=== PATIENT | male | born 1975 | race Two or more races ===

== ENCOUNTER 2019-05-30 12:42 | Inpatient (IN) | payer OTHER ==
[2019-05-30 13:07] VITALS: BMI 35.4
[2019-05-30] MEDS ORDERED: FAMOTIDINE 20 MG/50 ML IVPB 20 MG/50 ML MG IVPB ONE ×2 (13:34→13:56)
[2019-05-30] MEDS ORDERED: SODIUM CHLORIDE 1,000 ML IV STA (13:34)
[2019-05-30] MEDS ORDERED: ACETAMINOPHEN 1000 MG/100 ML VIAL (NON FORMULARY) IVPB ONE (13:34)
--- NOTE | 2019-05-30 13:41 | PDOC ---
History of Present Illness - General Chief Complaint: Blood Sugar Problem Stated Complaint: Blood Sugar Problem,Blood Pressure Problem Time Seen by Provider: 05/30/19 13:25 History Source: Patient Exam Limitations: No Limitations - History of Present Illness Initial Comments: 05/30/19 13:39 44y M with PMH of IDDM, HTN, HLD, Gastric Sleeve 2011, PNA c/b brain abscess s/ p drainage and L labial droop 2013, Alcohol abuse, Pancreatitis presenting to ED for hypertension and hyperglycemia. Pt went to [facility] for detox but was sent to ER for elevated bp and blood glucose. Pt states that for the past week he has been drinking 1L of rum daily and last drink was 5d ago. He denies history of withdrawal seizures or admission to the hospital for withdrawal. Pt also endorses pain in the epigastrum radiating to the back which has been present for the past few days and loose non bloody stools. He has not been compliant with his medications; he does not take his bp or statins when he binge drinks and only uses Lantus because he ran out of Novolog. Denies vomiting, fever, chills, headache, bloating, chest pain, sob, rash. PMD: none PMH: see hpi PSH: see hpi Meds: amlodipine 10mg? Crestor 10mg, Lantus, Novolog Social: binge drinking, marijuana use Allergies: nkda Past History - Past Medical History Allergies/Adverse Reactions: Allergies Allergy/AdvReac Type Severity Reaction Status Date / Time No Known Allergies Allergy Verified 05/30/19 10:52 Home Medications: Ambulatory Orders Albuterol Sulfate Inhaler - [Ventolin Hfa Inhaler -] 2 inh PO Q4H PRN 05/30/19 Amlodipine Besylate [Norvasc -] 5 mg PO DAILY 05/30/19 Famotidine 20 mg PO DAILY 05/30/19 Rosuvastatin Calcium [Crestor] 20 mg PO HS 05/30/19 Asthma: Yes CVA: Yes (2013) COPD: No Diabetes: Yes (IDDM) HTN: Yes Liver Disease: Yes (cirossis, hep c) Psychiatric Problems: Yes (alcoholism, drug addiction) - Surgical History Gastric Stapling: Yes (gastric sleeve 2012) GI Surgery: Yes (liver bx) Neurologic Surgery: Yes (crainotomy) - Psycho Social/Smoking Cessation Hx Smoking History: Former smoker Have you smoked in the past 12 months: No Information on smoking cessation initiated: Yes Hx Alcohol Use: Yes Drug/Substance Use Hx: Yes (Kiersten) Review of Systems - Review of Systems Constitutional: No: Chills, Fever, Weakness HEENTM: No: Symptoms Reported Respiratory: No: Symptoms reported Cardiac (ROS): No: Symptoms Reported ABD/GI: Yes: Diarrhea, Abdominal cramping. No: Blood Streaked Bowels, Nausea, Rectal Bleeding, Vomiting, Tarry Stools : No: Symptoms Reported Musculoskeletal: No: Symptoms Reported Integumentary: No: Symptoms Reported Neurological: No: Symptoms reported *Physical Exam - Vital Signs Last Vital Signs Temp Pulse Resp BP Pulse Ox 98 F 109 H 15 185/115 H 98 05/30/19 12:57 05/30/19 12:57 05/30/19 12:57 05/30/19 12:57 05/30/19 12:57 - Physical Exam General Appearance: Yes: Appropriately Dressed, Obese. No: Apparent Distress HEENT: positive: EOMI, KARI. negative: Scleral Icterus (R), Scleral Icterus (L) Neck: positive: Trachea midline, Supple. negative: Lymphadenopathy (R), Lymphadenopathy (L) Respiratory/Chest: positive: Lungs Clear, Normal Breath Sounds. negative: Crackles, Rales, Rhonchi, Stridor, Wheezing Cardiovascular: positive: Regular Rhythm, Regular Rate, S1, S2. negative: Edema , JVD, Murmur Vascular Pulses: Dorsalis-Pedis (R): 2+, Doralis-Pedis (L): 2+ Gastrointestinal/Abdominal: positive: Normal Bowel Sounds, Soft. negative: Tender, Distended, Guarding, Rebound, Hernia, Mass Musculoskeletal: negative: CVA Tenderness Extremity: positive: Normal Capillary Refill. negative: Pedal Edema, Swelling, Calf Tenderness Integumentary: positive: Normal Color, Dry, Warm. 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 Endorsing epigastric pain radiating to back and 5 day sobriety from binge drinking 1L rum. initial vitals: tachycardic, hypertensive, afebrile, saturating well on RA. meds and belongings at [facility] comfortable appearing. no focal exam findings. no astrexis or fasiculations low suspicion for stroke at this time, low suspicion for PRES. htn likely 2/2 noncompliance v. withdrawal ddx includes pancreatitis, DKA, gerd, gastritits, PUD will obtain labs, trop, lipase, bhb, vbg ekg, cxr -ivf, pepcid, ofirmev nontender on exam; does not require imaging lipase elevated, normal lfts. given pain and elevated lipase, pt has pancreatitis. will give amlodipine and librium and maintenence fluids admitted to hospitalist Discharge - Discharge Information Problems reviewed: Yes Clinical Impression/Diagnosis: Pancreatitis Qualifiers: Chronicity: acute Pancreatitis type: alcohol induced Acute pancreatitis complication: unspecified Qualified Code(s): K85.20 - Alcohol induced acute pancreatitis without necrosis or infection Hypertension Qualifiers: Hypertension type: unspecified Qualified Code(s): I10 - Essential (primary) hypertension Condition: Stable - Admission Yes - Follow up/Referral - Patient Discharge Instructions - Post Discharge Activity
[2019-05-30 13:53] LABS: BASO % 0.7 % (0-2.0); EOS % 1.3 % (0-4.5); HEMATOCRIT 43.4 % (35.4-49); HEMOGLOBIN 14.3 GM/dL (11.7-16.9); MCH 27.1 pg (25.7-33.7); MCHC 32.9 g/dl (32.0-35.9); MEAN CELL VOLUME 82.5 fl (80-96); MEAN PLT VOLUME 7.4 fl (7.5-11.1); MONO % 8.7 % (3.8-10.2); NEUT % 67.3 % (42.8-82.8); PLATELET COUNT 225 K/MM3 (134-434); RBC 5.26 M/mm3 (4.00-5.60); RDW 14.1 % (11.9-15.9)
[2019-05-30] MEDS ORDERED: ACETAMINOPHEN INJECTION 100 ML IVPB ONE (13:55)
[2019-05-30 14:29] LABS: ALBUMIN 3.4 g/dl (3.4-5.0); ALK PHOS 117 U/L (45-117); ANION GAP 14 MMOL/L (8-16); BILIRUBIN,TOTAL 0.6 mg/dL (0.2-1); BLOOD UREA NITROGEN 8.9 mg/dL (7-18); CHLORIDE 103 mmol/L (98-107); CO2 20 mmol/L (21-32); CREATININE 0.7 mg/dL (0.55-1.3); GLUCOSE,RANDOM 296 mg/dL (74-106); LIPASE 1091 U/L (73-393); POTASSIUM 3.6 mmol/L (3.5-5.1); SGOT/AST 9 U/L (15-37); SGPT/ALT 24 U/L (13-61); SODIUM 137 mmol/L (136-145); TOT PROT 7.2 g/dl (6.4-8.2)
[2019-05-30 14:41] LABS: VENOUS PC02 35.3 mmHg (38-52); VENOUS PH 7.35 (7.31-7.41)
[2019-05-30 14:43] LABS: VENOUS PO2 < 49 mmHg (28-48)
[2019-05-30] MEDS ORDERED: LACTATED RINGERS SOLUTION 1,000 ML/1,000 ML INFUS.BAG IV SCH (14:45)
[2019-05-30] MEDS ORDERED: amLODIPine BESYLATE 5 MG TABLET (FP) PO ONE ×2 (15:01→16:30)
[2019-05-30] MEDS ORDERED: diazePAM CARPU-JECT 10 MG/2 ML DISP.SYRIN IVPUSH ONE (15:02)
[2019-05-30] MEDS ORDERED: chlordiazePOXIDE HCL 25 MG CAPSULE PO ONE (15:02)
[2019-05-30] MEDS ORDERED: chlordiazePOXIDE HCL 25 MG CAPSULE ONE (15:12)
[2019-05-30] MEDS ORDERED: amLODIPine BESYLATE 5 MG TABLET (FP) ONE ×2 (15:12→16:37)
[2019-05-30] MEDS ORDERED: diazePAM CARPU-JECT 10 MG/2 ML DISP.SYRIN ONE (15:12)
--- NOTE | 2019-05-30 15:15 | PDOC ---
Attending Attestation - Resident Resident Name: Leslie Rudd - ED Attending Attestation I have performed the following: I have examined & evaluated the patient, The case was reviewed & discussed with the resident, I agree w/resident's findings & plan - HPI HPI: 05/30/19 15:10 44-year-old male with history of hypertension, insulin-dependent diabetes, alcohol abuse complicated by pancreatitis in the past presents from [facility] for evaluation of elevated blood pressure. Patient had last binge EtOH from Wednesday through of last week, about 1 week ago started developing epigastric pain with loose nonbloody diarrhea, stopped binge on and self detoxed over the weekend, presented to [facility] now for evaluation complaining only of mild persistent epigastric pain. Was noted to have elevated blood pressure and heart rate, sent to ED. No headache/vision change/speech change/focal deficit, no chest pain or palpitations or shortness of breath. Patient's withdrawal symptoms have essentially resolved, slightly jittery but no tremors. - Physicial Exam PE: 05/30/19 15:14 Hypertensive, heart rate improved since triage, now 80 on my examination. O2 sat within normal limits. Seated comfortably in stretcher speaking full sentences No tongue fasciculations or tremors Heart is regular, lungs are clear Epigastric discomfort to palpation without guarding or rebound No edema Neurologically intact - Medical Decision Making 05/30/19 15:15 44-year-old male with history of hypertension and known medication noncompliance for 1 week, insulin-dependent diabetes with medication noncompliance after running out of insulin, alcohol abuse with recent binge presents with hypertension and tachycardia from [facility], where he presented for rehab. Patient is not in acute withdrawal, epigastric pain could be consistent with pancreatitis, no signs or symptoms of endorgan injury from elevated blood pressure. Labs are within normal limits except for lipase, which is slightly over 1000 EKG is nonischemic Librium for withdrawal precautions, IV fluids for pancreatitis, amlodipine for hypertension Admission Heart Score/ECG Review #1 ECG reviewed & interpreted by me at: 13:40 General ECG Interpretation: Sinus Rhythm, Normal Rate (99), Normal Intervals ( qtc 469), No acute ischemic changes (VA depression V1-V3 without EULALIA) Compared to previous ECG there are: Previous ECG unavail
[2019-05-30] MEDS: LACTATED RINGERS SOLUTION 1,000 ML/1,000 ML INFUS.BAG IV SCH (15:23)
[2019-05-30] MEDS: INSULIN SLIDING SCALE (NOVOLOG) 1 VIAL SQ SCH ×2 (16:31→22:40)
[2019-05-30] MEDS ORDERED: INSULIN (NOVOLOG) ASPART 100 UNITS/ML 10ML VIAL ONE (16:38)
--- NOTE | 2019-05-30 16:49 | HP ---
CHIEF COMPLAINT: abdominal pain PCP: denies HISTORY OF PRESENT ILLNESS: This is a 44 y/o gentleman with a PMHx of HTN, IDDM , polysubstance abuse, HCV (treated succesfully with Jaelyn), alcoholic pancreatitis, DKA, ischemic stroke (2013) with minimal residual left sided aphasia, craniotomies for bacterial cranial abscess, cirrhosis, who presents from [facility] c/o epigastric pain X 1 week. Associated with 3 bouts of loose stool today, but denies any vomiting, fevers, chills, cp, sob, numbness, bladder complaints. Pt states he was at [facility] and was told he would have to come to the hospital to be evaluated for elevated BP, hyperglycemia. Pt recently been laid off due to being caught drinking on the job and that has caused increased stress and worsening of his symptoms. He admits to recent alcohol binge drinking of 1L of rum this past and enrolled himself into [facility] detox. Pt states it is his first time in detox. He has a fam hx of alcohol abuse. Pt admits to running out of his novolog prescription, as it was last refilled for only 30 days. 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 Allergies No Known Allergies Allergy (Verified 05/30/19 10:52) Allergy to shellfish, peanuts (anaphylaxis) HOME MEDICATIONS: Home Medications Medication Instructions Recorded Albuterol Sulfate Inhaler - 2 inh PO Q4H PRN 05/30/19 [Ventolin Hfa Inhaler -] Amlodipine Besylate [Norvasc -] 5 mg PO DAILY 05/30/19 Famotidine 20 mg PO DAILY 05/30/19 Rosuvastatin Calcium [Crestor] 20 mg PO HS 05/30/19 REVIEW OF SYSTEMS negative except above PHYSICAL EXAMINATION Vital Signs - 24 hr 05/30/19 05/30/19 12:57 14:01 Temperature 98 F Pulse Rate 109 H Pulse Rate [ 99 H Apical] Respiratory 15 16 Rate Blood Pressure 185/115 H Blood Pressure 195/111 H [Left Arm] O2 Sat by Pulse 98 98 Oximetry (%) GENERAL: Awake, alert, and fully oriented, in no acute distress. Tattoes throughout his body and extremities. Face minimal left side aphasia on lip mostly, sensation and motor ftn intact b/l. LUNGS: Breath sounds reduced, clear to auscultation bilaterally. No wheezes, and no crackles. No accessory muscle use. HEART: Regular rate and rhythm, normal S1 and S2 without murmur, rub or gallop. ABDOMEN: Soft, nontender to palpation, no castillo sign, negative mcburneys, negative cullens, angel turners sign on exam. LOWER EXTREMITIES: 2+ pulses, warm, well-perfused. No calf tenderness. No peripheral edema. NEUROLOGICAL: Cranial nerves II-XII intact. Normal speech. Normal gait. Laboratory Results - last 24 hr 05/30/19 05/30/19 05/30/19 12:53 13:37 13:37 WBC 7.0 RBC 5.26 Hgb 14.3 Hct 43.4 MCV 82.5 MCH 27.1 MCHC 32.9 RDW 14.1 Plt Count 225 MPV 7.4 L Absolute Neuts (auto) 4.7 Neutrophils % 67.3 Lymphocytes % 22.0 Monocytes % 8.7 Eosinophils % 1.3 Basophils % 0.7 Nucleated RBC % 0 VBG pH POC VBG pCO2 POC VBG pO2 VBG HCO3 VBG O2 Sat (Shawn) VBG Base Excess Sodium 137 Potassium 3.6 Chloride 103 Carbon Dioxide 20 L Anion Gap 14 BUN 8.9 Creatinine 0.7 Est GFR (CKD-EPI)AfAm 134.91 Est GFR (CKD-EPI)NonAf 116.40 POC Glucometer 331 Random Glucose 296 H Calcium 9.0 Total Bilirubin 0.6 AST 9 L ALT 24 Alkaline Phosphatase 117 Troponin I < 0.02 Total Protein 7.2 Albumin 3.4 Lipase 1091 H Beta-Hydroxybutyrate 38.7 H 05/30/19 05/30/19 13:44 16:29 WBC RBC Hgb Hct MCV MCH MCHC RDW Plt Count MPV Absolute Neuts (auto) Neutrophils % Lymphocytes % Monocytes % Eosinophils % Basophils % Nucleated RBC % VBG pH 7.35 POC VBG pCO2 35.3 L POC VBG pO2 < 49 H VBG HCO3 18.8 L VBG O2 Sat (Shawn) 79.5 VBG Base Excess -5.7 L Sodium Potassium Chloride Carbon Dioxide Anion Gap BUN Creatinine Est GFR (CKD-EPI)AfAm Est GFR (CKD-EPI)NonAf POC Glucometer 214 Random Glucose Calcium Total Bilirubin AST ALT Alkaline Phosphatase Troponin I Total Protein Albumin Lipase Beta-Hydroxybutyrate ASSESSMENT/PLAN: This is a 44 y/o gentleman with a PMHx of HTN, IDDM, polysubstance abuse, HCV ( treated succesfully with Jaelyn), alcoholic pancreatitis, DKA, ischemic stroke (2013) with minimal residual left sided aphasia, craniotomies for bacterial cranial abscess, cirrhosis, who presents from [facility] c/o epigastric pain X 1 week. #Acute pancreatitis - likely 2/2 alcohol abuse - Lipase elevated, epigastric pain (2/3 criteria not requiring imaging at this time or abx). - lipid panel pending - no medications associated with this per pts med list - lipid panel, A1C ordered, tsh, mg, po4 ordered - can feed pt now as pt not having much abd pain and not nauseous - LR 150cc/hr for now - lipase ordered for am to make sure its downtrending - pt not in withdrawal at this time, will f/u at [facility] once clinically stable - librium and diazepam given in ED no need to continue - 2mg morphine q6 prn for pain #Hypertensive urgency - 2/2 not taking oral meds - pt restarted on amlodipine 10mg and pt continued to have elevated BP and tachycardia per nurse not in pain at moment so started pt on losartan 25 daily - likely will start another medication if pt BP does not resolve #IDDM - ISS - BGM ACHS - Levemir 25 HS Elevated BOHbutyrate 2/2 starvation ketosis - not in DKA - no AG, HCO3 not less than 18, we dont have an abg but the Beta hydroxybutyrate is likely due to starvation ketosis from poor po intake and DM - clear liquids as tolerated Asthma - controlled - c/w home meds - ventolin and flonase DVT ppx: Hep 5K TID Visit type - Emergency Visit Emergency Visit: Yes ED Registration Date: 05/30/19 Care time: The patient presented to the Emergency Department on the above date and was hospitalized for further evaluation of their emergent condition. - New Patient This patient is new to me today: Yes Date on this admission: 05/30/19 - Critical Care Critical Care patient: No ATTENDING PHYSICIAN STATEMENT I saw and evaluated the patient. I reviewed the resident's note and discussed the case with the resident. I agree with the resident's findings and plan as documented. SUBJECTIVE: OBJECTIVE: ASSESSMENT AND PLAN:
[2019-05-30] MEDS ORDERED: ALBUTEROL SO4 HFA INHALER IH PRN (17:11)
[2019-05-30 17:19] LABS: EPI CELLS 4.2 /HPF (0-5/HPF); HYALINE CASTS 3 /lpf (0-8); URINE APPEARANCE CLEAR; URINE BACTERIA 76.4 /hpf (NEGATIVE); URINE BILIRUBIN NEGATIVE (NEGATIVE); URINE COLOR YELLOW; URINE GLUCOSE (UA) 3+ (NEGATIVE); URINE KETONE 3+ (NEGATIVE); URINE LEUK ESTERASE NEGATIVE (NEGATIVE); URINE NITRITE NEGATIVE (NEGATIVE); URINE PROTEIN 2+ (NEGATIVE); URINE RBC 2 /hpf (0-4); URINE UROBILINOGEN 0.2 mg/dL (0.2-1.0); URINE WBC 2 /hpf (0-5)
[2019-05-30] MEDS: ACETAMINOPHEN 325 MG TABLET (FP) PO PRN (18:15)
[2019-05-30] MEDS ORDERED: ACETAMINOPHEN 325 MG TABLET (FP) ONE (18:18)
[2019-05-30] MEDS ORDERED: morphine CARPU-JECT 4 MG/1 ML DISP.SYRIN IVPUSH ONE (18:20)
[2019-05-30] MEDS ORDERED: HYDROmorphone HCL CARPU-JECT 2 MG/1 ML DISP.SYRIN IVPUSH STA (18:34)
[2019-05-30] MEDS ORDERED: MORPHINE SULFATE 2 MG/ML VIAL ONE (18:34)
[2019-05-30] MEDS ORDERED: MORPHINE SULFATE 2 MG/ML VIAL IVPUSH PRN ×2 (18:51→18:52)
[2019-05-30] MEDS ORDERED: LOSARTAN POTASSIUM 50 MG TABLET (FP) ONE (21:02)
[2019-05-30] MEDS: LOSARTAN POTASSIUM 25 MG TABLET PO SCH (21:09)
[2019-05-30] MEDS ORDERED: ALBUTEROL SO4 HFA INHALER IH SCH (22:00)
[2019-05-30] MEDS: ROSUVASTATIN CA 10 MG TABLET (FP) PO SCH (22:38)
[2019-05-30] MEDS: INSULIN (LEVEMIR) 100 UNITS/ML UNITS SQ SCH (22:39)
[2019-05-30] MEDS: HEPARIN NA (PORCINE) 5,000 UNITS/ML 1ML VIAL SQ SCH (22:42)
[2019-05-30] MEDS: FLUTICASONE PROP 0.05% 16 GM NASAL SPRAY NS SCH ×2 (22:43→23:08)
--- NOTE | 2019-05-30 22:44 | PN ---
Teaching Attending Note Name of Resident: Gordo Berger ATTENDING PHYSICIAN STATEMENT I saw and evaluated the patient. I reviewed the resident's note and discussed the case with the resident. I agree with the resident's findings and plan as documented. 44 M HTN, IDDM, PSA, HCV (treated succesfully with Jaelyn), Etoh induced pancreatitis, DKA, ischemic stroke (2013) with minimal residual left sided aphasia, craniotomies for bacterial cranial abscess, cirrhosis, who presents from [facility] presenting with epigastric pain x1 week. Patient endorses chronic abdominal pain especially when he binges on alcohol, last drink he endorses was 6 days ago, endorses abdominal pain feels similar from prior. Denies fever/chills/CP/LOC/bleeding from any source. PE GA comfortable, AAox3, speaking in full sentences HEENT NC/AT, EOMI, no JVD, dry MM Chest CTAB, no crackles or wheezing CVS S1, S2+, RRR Abd obese, soft, NT, BS+, no guarding Ext No LE edema, no calf tenderness, ambulating around ED Vital Signs - 24 hr 05/30/19 05/30/19 05/30/19 12:57 14:01 16:30 Temperature 98 F Pulse Rate 109 H Pulse Rate [ 99 H 112 H Apical] Respiratory 15 16 20 Rate Blood Pressure 185/115 H Blood Pressure 195/111 H 179/114 H [Left Arm] O2 Sat by Pulse 98 98 99 Oximetry (%) 05/30/19 21:10 Temperature 98.7 F Pulse Rate Pulse Rate [ 105 H Apical] Respiratory 20 Rate Blood Pressure Blood Pressure 190/117 H [Left Arm] O2 Sat by Pulse 100 Oximetry (%) Laboratory Results - last 24 hr 05/30/19 05/30/19 05/30/19 12:53 13:37 13:37 WBC 7.0 RBC 5.26 Hgb 14.3 Hct 43.4 MCV 82.5 MCH 27.1 MCHC 32.9 RDW 14.1 Plt Count 225 MPV 7.4 L Absolute Neuts (auto) 4.7 Neutrophils % 67.3 Lymphocytes % 22.0 Monocytes % 8.7 Eosinophils % 1.3 Basophils % 0.7 Nucleated RBC % 0 VBG pH POC VBG pCO2 POC VBG pO2 VBG HCO3 VBG O2 Sat (Shawn) VBG Base Excess Sodium 137 Potassium 3.6 Chloride 103 Carbon Dioxide 20 L Anion Gap 14 BUN 8.9 Creatinine 0.7 Est GFR (CKD-EPI)AfAm 134.91 Est GFR (CKD-EPI)NonAf 116.40 POC Glucometer 331 Random Glucose 296 H Calcium 9.0 Total Bilirubin 0.6 AST 9 L ALT 24 Alkaline Phosphatase 117 Troponin I < 0.02 Total Protein 7.2 Albumin 3.4 Lipase 1091 H Beta-Hydroxybutyrate 38.7 H Urine Color Urine Appearance Urine pH Ur Specific [place] Urine Protein Urine Glucose (UA) Urine Ketones Urine Blood Urine Nitrite Urine Bilirubin Urine Urobilinogen Ur Leukocyte Esterase Urine WBC (Auto) Urine RBC (Auto) Urine Casts (Auto) U Epithel Cells (Auto) Urine Bacteria (Auto) 05/30/19 05/30/19 05/30/19 13:44 16:29 16:55 WBC RBC Hgb Hct MCV MCH MCHC RDW Plt Count MPV Absolute Neuts (auto) Neutrophils % Lymphocytes % Monocytes % Eosinophils % Basophils % Nucleated RBC % VBG pH 7.35 POC VBG pCO2 35.3 L POC VBG pO2 < 49 H VBG HCO3 18.8 L VBG O2 Sat (Shawn) 79.5 VBG Base Excess -5.7 L Sodium Potassium Chloride Carbon Dioxide Anion Gap BUN Creatinine Est GFR (CKD-EPI)AfAm Est GFR (CKD-EPI)NonAf POC Glucometer 214 Random Glucose Calcium Total Bilirubin AST ALT Alkaline Phosphatase Troponin I Total Protein Albumin Lipase Beta-Hydroxybutyrate Urine Color Yellow Urine Appearance Clear Urine pH 5.0 Ur Specific [place] 1.032 Urine Protein 2+ H Urine Glucose (UA) 3+ H Urine Ketones 3+ H Urine Blood 1+ H Urine Nitrite Negative Urine Bilirubin Negative Urine Urobilinogen 0.2 Ur Leukocyte Esterase Negative Urine WBC (Auto) 2 Urine RBC (Auto) 2 Urine Casts (Auto) 3 U Epithel Cells (Auto) 4.2 Urine Bacteria (Auto) 76.4 05/30/19 22:28 WBC RBC Hgb Hct MCV MCH MCHC RDW Plt Count MPV Absolute Neuts (auto) Neutrophils % Lymphocytes % Monocytes % Eosinophils % Basophils % Nucleated RBC % VBG pH POC VBG pCO2 POC VBG pO2 VBG HCO3 VBG O2 Sat (Shawn) VBG Base Excess Sodium Potassium Chloride Carbon Dioxide Anion Gap BUN Creatinine Est GFR (CKD-EPI)AfAm Est GFR (CKD-EPI)NonAf POC Glucometer 272 Random Glucose Calcium Total Bilirubin AST ALT Alkaline Phosphatase Troponin I Total Protein Albumin Lipase Beta-Hydroxybutyrate Urine Color Urine Appearance Urine pH Ur Specific [place] Urine Protein Urine Glucose (UA) Urine Ketones Urine Blood Urine Nitrite Urine Bilirubin Urine Urobilinogen Ur Leukocyte Esterase Urine WBC (Auto) Urine RBC (Auto) Urine Casts (Auto) U Epithel Cells (Auto) Urine Bacteria (Auto) Home Medications Medication Instructions Recorded Amlodipine Besylate [Norvasc -] 10 mg PO DAILY 05/30/19 Famotidine 20 mg PO BID 05/30/19 Insulin Aspart [Novolog] 10 unit SQ AC 05/30/19 Insulin Glargine,Hum.rec.anlog 25 unit SQ HS 05/30/19 [Lantus] Rosuvastatin Calcium [Crestor] 10 mg PO HS 05/30/19 Current Medications Generic Name Dose Route Start Last Admin Trade Name Freq PRN Reason Stop Dose Admin Acetaminophen 650 mg 05/30/19 16:33 05/30/19 18:15 Tylenol - PO 650 mg Q6H PRN Administration PAIN LEVEL 1 - 3 Albuterol Sulfate 2 puff 05/30/19 17:11 Ventolin Hfa Inhaler - IH Q12H PRN WHEEZING Amlodipine Besylate 10 mg 05/31/19 10:00 Norvasc - PO DAILY YADY Famotidine 20 mg 05/31/19 10:00 Pepcid - PO DAILY YADY Fluticasone Propionate 1 spray 05/30/19 22:00 Flonase - NS BID YADY Heparin Sodium (Porcine) 5,000 unit 05/30/19 22:00 Heparin - SQ TID YADY Lactated Ringer's 1,000 ml in 1,000 mls @ 150 mls/hr 05/30/19 15:11 05/30/19 15:23 Lactated Ringers Solution IV 150 mls/hr ASDIR YADY Administration Insulin Aspart 1 vial 05/30/19 16:30 05/30/19 16:31 Novolog Vial Sliding Scale - SQ 4 units ACHS YADY Administration Protocol Insulin Detemir 25 units 05/30/19 22:00 Levemir Vial SQ HS YADY Losartan Potassium 25 mg 05/30/19 19:00 05/30/19 21:09 Cozaar - PO 25 mg DAILY YADY Administration Morphine Sulfate 2 mg 05/30/19 18:52 Morphine Sulfate IVPUSH Q6H PRN PAIN LEVEL 6-10 Rosuvastatin Calcium 10 mg 05/30/19 22:00 Crestor - PO HS YADY A/P: 44 M chronic pancreatitis 2/2 Etoh use, HTN, HLD, IDDM, asthma presents with acute on chronic pancreatitis and HTN urgency. Acute on chronic pancreatitis IVF, morphine for pain control, clear diet as tolerated Reinforce Etoh cessation, repeat lipase, on exam abdominal pain is minimal, tolerating PO HTN urgency Non-compliant w/ BP meds Restart Norvasc, add Losartan at increment doses Obtain UA (check for proteinuria d/t DM) IDDM Basal insulin, ISS, and premeal insulin as needed Send A1c/lipids/TSH Etoh induced ketosis Elevated BHB, likely 2/2 poor intake and etoh use Trend chem Asthma Controlled Restart home asthma meds, Albuterol PRN for SOB DVT ppx: Hep 5K TID Med Surg
[2019-05-30] MEDS ORDERED: LOSARTAN POTASSIUM 25 MG TABLET PO ONE (23:18)
[2019-05-31] MEDS ORDERED: MAG HYDROX/AL HYDROX/SIMETH 30 ML UNIT-DOSE CUP PO ONE (01:28)
[2019-05-31] MEDS: HEPARIN NA (PORCINE) 5,000 UNITS/ML 1ML VIAL SQ SCH ×3 (07:01→21:23)
[2019-05-31] MEDS: INSULIN SLIDING SCALE (NOVOLOG) 1 VIAL SQ SCH ×4 (07:03→21:17)
[2019-05-31] MEDS: LACTATED RINGERS SOLUTION 1,000 ML/1,000 ML INFUS.BAG IV SCH (08:32)
[2019-05-31 09:13] LABS: BASO % 0.6 % (0-2.0); EOS % 1.5 % (0-4.5); HEMATOCRIT 42.6 % (35.4-49); HEMOGLOBIN 14.3 GM/dL (11.7-16.9); LYMPH % 27.1 % (8-40); MCH 27.2 pg (25.7-33.7); MCHC 33.6 g/dl (32.0-35.9); MEAN PLT VOLUME 7.3 fl (7.5-11.1); MONO % 7.8 % (3.8-10.2); PLATELET COUNT 235 K/MM3 (134-434); RBC 5.26 M/mm3 (4.00-5.60); RDW 13.8 % (11.9-15.9); WHITE BLOOD COUNT 5.8 K/mm3 (4.0-10.0)
[2019-05-31 09:35] LABS: CHOLESTEROL 342 mg/dL (50-200); HDL CHOLESTEROL 82 mg/dL (40-60); LDL CHOLESTEROL (ONLY SJRH) 210 mg/dL (5-100); TRIGLYCERIDES 254 mg/dL (0-150)
[2019-05-31] MEDS: ACETAMINOPHEN 325 MG TABLET (FP) PO PRN ×2 (09:50→21:25)
[2019-05-31] MEDS: FOLIC ACID 1 MG TABLET (FP) PO SCH (09:52)
[2019-05-31] MEDS: THIAMINE HCL 100 MG TABLET (FP) PO SCH (09:52)
[2019-05-31] MEDS: amLODIPine BESYLATE 10 MG TABLET (FP) PO SCH (09:52)
[2019-05-31] MEDS: FLUTICASONE PROP 0.05% 16 GM NASAL SPRAY NS SCH ×2 (09:53→21:24)
[2019-05-31] MEDS: LOSARTAN POTASSIUM 25 MG TABLET PO SCH (09:53)
[2019-05-31] MEDS ORDERED: FAMOTIDINE 20 MG TABLET PO SCH (10:00)
[2019-05-31 10:13] LABS: ALBUMIN 3.3 g/dl (3.4-5.0); BILIRUBIN,TOTAL 0.6 mg/dL (0.2-1); BLOOD UREA NITROGEN 9.6 mg/dL (7-18); CALCIUM 8.9 mg/dL (8.5-10.1); CREATININE 0.7 mg/dL (0.55-1.3); MAGNESIUM 1.9 mg/dL (1.8-2.4); PHOSPHOROUS 2.6 mg/dL (2.5-4.9); TOT PROT 7.2 g/dl (6.4-8.2)
[2019-05-31 10:17] LABS: POTASSIUM 2.8 mmol/L (3.5-5.1)
[2019-05-31] MEDS ORDERED: POTASSIUM CHLORIDE TABS 20 MEQ TABLET.ER (FP) PO ONE (10:31)
[2019-05-31] MEDS ORDERED: LACTATED RINGERS SOLUTION 1,000 ML/1,000 ML INFUS.BAG IV SCH (10:31)
--- NOTE | 2019-05-31 10:43 | EKG ---
Test Reason : Blood Pressure : / mmHG Vent. Rate : 099 BPM Atrial Rate : 099 BPM P-R Int : 154 ms QRS Dur : 084 ms QT Int : 366 ms P-R-T Axes : 047 010 052 degrees QTc Int : 469 ms NORMAL SINUS RHYTHM POSSIBLE LEFT ATRIAL ENLARGEMENT ANTERIOR INFARCT , AGE UNDETERMINED ABNORMAL ECG NO PREVIOUS ECGS AVAILABLE Confirmed by Stepan Navarro MD ([id number]) on 05/31/2019 10:43:38 AM Referred By: Confirmed By:Stepan Navarro MD
[2019-05-31] MEDS: PANTOPRAZOLE SODIUM 40 MG VIAL IVPUSH SCH (11:16)
[2019-05-31] MEDS: KCL 10 MEQ IVPB 10 MEQ/100 ML INFUS.BAG IVPB SCH ×3 (11:16→14:32)
[2019-05-31] MEDS ORDERED: INSULIN (NOVOLOG) ASPART 100 UNITS/ML 10ML VIAL ONE ×2 (11:27→16:29)
--- NOTE | 2019-05-31 16:59 | PN ---
Teaching Attending Note Name of Resident: Gordo Berger ATTENDING PHYSICIAN STATEMENT I saw and evaluated the patient. I reviewed the resident's note and discussed the case with the resident. I agree with the resident's findings and plan as documented. SUBJECTIVE: Feeling much better. Abdominal pain resolving. No nausea/vomiting. No fever/chills. OBJECTIVE: Afebrile, hemodynamically Stable. Last Vital Signs Temp Pulse Resp BP Pulse Ox 98.8 F 104 H 18 159/102 H 98 05/31/19 15:01 05/31/19 15:01 05/31/19 15:01 05/31/19 15:01 05/31/19 10:00 HEENT - Atraumatic, Normocephalic. Heart - S1, S2, RRR Lungs - clear to auscultation Abdomen -Soft, non-tender. Bowel Sounds normal. Extremities - no edema, no calf tenderness. Skin - extensive tattoes. Laboratory Results - last 24 hr 05/30/19 05/30/19 05/31/19 16:55 22:28 05:23 WBC RBC Hgb Hct MCV MCH MCHC RDW Plt Count MPV Absolute Neuts (auto) Neutrophils % Lymphocytes % Monocytes % Eosinophils % Basophils % Nucleated RBC % Sodium Potassium Chloride Carbon Dioxide Anion Gap BUN Creatinine Est GFR (CKD-EPI)AfAm Est GFR (CKD-EPI)NonAf POC Glucometer 272 205 Random Glucose Hemoglobin A1c % Calcium Phosphorus Magnesium Total Bilirubin AST ALT Alkaline Phosphatase Total Protein Albumin Triglycerides Cholesterol Total LDL Cholesterol HDL Cholesterol Lipase TSH Urine Color Yellow Urine Appearance Clear Urine pH 5.0 Ur Specific [place] 1.032 Urine Protein 2+ H Urine Glucose (UA) 3+ H Urine Ketones 3+ H Urine Blood 1+ H Urine Nitrite Negative Urine Bilirubin Negative Urine Urobilinogen 0.2 Ur Leukocyte Esterase Negative Urine WBC (Auto) 2 Urine RBC (Auto) 2 Urine Casts (Auto) 3 U Epithel Cells (Auto) 4.2 Urine Bacteria (Auto) 76.4 05/31/19 05/31/19 05/31/19 08:30 08:30 08:30 WBC 5.8 RBC 5.26 Hgb 14.3 Hct 42.6 MCV 81.0 MCH 27.2 MCHC 33.6 RDW 13.8 Plt Count 235 MPV 7.3 L Absolute Neuts (auto) 3.6 Neutrophils % 63.0 Lymphocytes % 27.1 D Monocytes % 7.8 Eosinophils % 1.5 Basophils % 0.6 Nucleated RBC % 0 Sodium 134 L Potassium 2.8 L* Chloride 97 L Carbon Dioxide 24 Anion Gap 13 BUN 9.6 Creatinine 0.7 Est GFR (CKD-EPI)AfAm 134.91 Est GFR (CKD-EPI)NonAf 116.40 POC Glucometer Random Glucose 256 H Hemoglobin A1c % Calcium 8.9 Phosphorus 2.6 Magnesium 1.9 Total Bilirubin 0.6 AST 8 L ALT 25 Alkaline Phosphatase 113 Total Protein 7.2 Albumin 3.3 L Triglycerides 254 H Cholesterol 342 H Total LDL Cholesterol 210 H HDL Cholesterol 82 H Lipase 443 H TSH 2.49 Urine Color Urine Appearance Urine pH Ur Specific [place] Urine Protein Urine Glucose (UA) Urine Ketones Urine Blood Urine Nitrite Urine Bilirubin Urine Urobilinogen Ur Leukocyte Esterase Urine WBC (Auto) Urine RBC (Auto) Urine Casts (Auto) U Epithel Cells (Auto) Urine Bacteria (Auto) 05/31/19 05/31/19 05/31/19 08:30 11:24 16:20 WBC RBC Hgb Hct MCV MCH MCHC RDW Plt Count MPV Absolute Neuts (auto) Neutrophils % Lymphocytes % Monocytes % Eosinophils % Basophils % Nucleated RBC % Sodium Potassium Chloride Carbon Dioxide Anion Gap BUN Creatinine Est GFR (CKD-EPI)AfAm Est GFR (CKD-EPI)NonAf POC Glucometer 248 296 Random Glucose Hemoglobin A1c % 9.2 H Calcium Phosphorus Magnesium Total Bilirubin AST ALT Alkaline Phosphatase Total Protein Albumin Triglycerides Cholesterol Total LDL Cholesterol HDL Cholesterol Lipase TSH Urine Color Urine Appearance Urine pH Ur Specific [place] Urine Protein Urine Glucose (UA) Urine Ketones Urine Blood Urine Nitrite Urine Bilirubin Urine Urobilinogen Ur Leukocyte Esterase Urine WBC (Auto) Urine RBC (Auto) Urine Casts (Auto) U Epithel Cells (Auto) Urine Bacteria (Auto) Current Medications Generic Name Dose Route Start Last Admin Trade Name Freq PRN Reason Stop Dose Admin Acetaminophen 650 mg 05/30/19 16:33 05/31/19 09:50 Tylenol - PO 650 mg Q6H PRN Administration PAIN LEVEL 1 - 3 Albuterol Sulfate 2 puff 05/30/19 17:11 Ventolin Hfa Inhaler - IH Q12H PRN WHEEZING Amlodipine Besylate 10 mg 05/31/19 10:00 05/31/19 09:52 Norvasc - PO 10 mg DAILY YADY Administration Fluticasone Propionate 1 spray 02/11/20 22:00 05/31/19 09:53 Flonase - NS 1 spray BID YADY Administration Folic Acid 1 mg 05/31/19 10:00 05/31/19 09:52 Folic Acid - PO 1 mg DAILY YADY Administration Heparin Sodium (Porcine) 5,000 unit 05/30/19 22:00 05/31/19 14:33 Heparin - SQ 5,000 unit TID YADY Administration Hydrochlorothiazide 12.5 mg 05/31/19 17:00 Hctz - PO DAILY YADY Lactated Ringer's 1,000 ml in 1,000 mls @ 100 mls/hr 05/31/19 10:31 05/31/19 14:33 Lactated Ringers Solution IV 100 mls/hr ASDIR YADY Administration Insulin Aspart 1 vial 05/30/19 16:30 05/31/19 16:32 Novolog Vial Sliding Scale - SQ 6 units ACHS YADY Administration Protocol Insulin Detemir 25 units 05/30/19 22:00 05/30/19 22:39 Levemir Vial SQ 25 units HS [facility] Administration Losartan Potassium 25 mg 05/30/19 19:00 05/31/19 09:53 Cozaar - PO 25 mg DAILY YADY Administration Pantoprazole Sodium 40 mg 05/31/19 10:30 05/31/19 11:16 Protonix Iv IVPUSH 40 mg DAILY YADY Administration Rosuvastatin Calcium 10 mg 05/30/19 22:00 05/30/19 22:38 Crestor - PO 10 mg HS [facility] Administration Thiamine HCl 100 mg 05/31/19 10:00 05/31/19 09:52 Vitamin B1 - PO 100 mg DAILY YADY Administration Home Medications Medication Instructions Recorded Amlodipine Besylate [Norvasc -] 5 mg PO DAILY 05/30/19 Famotidine 20 mg PO DAILY 05/30/19 Insulin Aspart [Novolog] 10 unit SQ AC 05/30/19 Insulin Glargine,Hum.rec.anlog 25 unit SQ HS 05/30/19 [Lantus] Rosuvastatin Calcium [Crestor] 20 mg PO HS 05/30/19 ASSESSMENT AND PLAN: 44 year old male with history of Asthma, Polysubstance Abuse (cocaine, heroin, alcohol), DM 2, HCV (s/p Harvoni treatment), Hx Pancreatitis, CVA (2013), s/p craniotomies for cranial abscesses, presents from [facility] with 1 week history of epigastric pain and uncontrolled HTN. 1. Acute on Chronic Pancreatitis Likely sec to alcohol excess Improving, reports significant improvement in pain. Tolerating clears, will advance diet. GI Px - PPI. 2. Uncontrolled Hypertension Norvasc dose increased to 10mg, HCTZ and Losartan added. Will monitor BP response. 3. IDDM - uncontrolled, A1C 9.2 Continue Glargine and Novlog as per home regimen. 4. Asthma - stable no evidence of acute exacerbation. Albuterol PRN. 5. HLD - continue Crestor. LDL 254/LDL 210. Will confirm compliance with the patient. 6. Polysubstance Abuse (cocaine, heroin, alcohol) - no evidence of withdrawal. Continue Thiamine, Folic Acid. DVT Px - Heparin SQ
[2019-05-31] MEDS: HYDROCHLOROTHIAZIDE 12.5 MG CAPSULE (FP) PO SCH (17:12)
--- NOTE | 2019-05-31 17:25 | PN ---
Physical Exam: SUBJECTIVE: Patient seen and examined. Pt tried a sandwich resulted in pain overnight. No fevers, chills, acute complaints. OBJECTIVE: Vital Signs Period Temp Pulse Resp BP Sys/Monte Pulse Ox Last 24 Hr 97.9 F-98.8 F 99-105 18-20 157-197/100-119 98-100 GENERAL: Awake, alert, and fully oriented, in no acute distress. Tattoes throughout his body and extremities. Face minimal left side aphasia on lip mostly, sensation and motor ftn intact b/l. LUNGS: Breath sounds reduced, clear to auscultation bilaterally. No wheezes, and no crackles. No accessory muscle use. HEART: Regular rate and rhythm, normal S1 and S2 without murmur, rub or gallop. ABDOMEN: Soft, nontender to palpation, no castillo sign, negative mcburneys, negative cullens, angel turners sign on exam. LOWER EXTREMITIES: 2+ pulses, warm, well-perfused. No calf tenderness. No peripheral edema. NEUROLOGICAL: Cranial nerves II-XII intact. Normal speech. Normal gait. Laboratory Results - last 24 hr 05/30/19 05/31/19 05/31/19 22:28 05:23 08:30 WBC 5.8 RBC 5.26 Hgb 14.3 Hct 42.6 MCV 81.0 MCH 27.2 MCHC 33.6 RDW 13.8 Plt Count 235 MPV 7.3 L Absolute Neuts (auto) 3.6 Neutrophils % 63.0 Lymphocytes % 27.1 D Monocytes % 7.8 Eosinophils % 1.5 Basophils % 0.6 Nucleated RBC % 0 Sodium Potassium Chloride Carbon Dioxide Anion Gap BUN Creatinine Est GFR (CKD-EPI)AfAm Est GFR (CKD-EPI)NonAf POC Glucometer 272 205 Random Glucose Hemoglobin A1c % Calcium Phosphorus Magnesium Total Bilirubin AST ALT Alkaline Phosphatase Total Protein Albumin Triglycerides Cholesterol Total LDL Cholesterol HDL Cholesterol Lipase TSH 05/31/19 05/31/19 05/31/19 08:30 08:30 08:30 WBC RBC Hgb Hct MCV MCH MCHC RDW Plt Count MPV Absolute Neuts (auto) Neutrophils % Lymphocytes % Monocytes % Eosinophils % Basophils % Nucleated RBC % Sodium 134 L Potassium 2.8 L* Chloride 97 L Carbon Dioxide 24 Anion Gap 13 BUN 9.6 Creatinine 0.7 Est GFR (CKD-EPI)AfAm 134.91 Est GFR (CKD-EPI)NonAf 116.40 POC Glucometer Random Glucose 256 H Hemoglobin A1c % 9.2 H Calcium 8.9 Phosphorus 2.6 Magnesium 1.9 Total Bilirubin 0.6 AST 8 L ALT 25 Alkaline Phosphatase 113 Total Protein 7.2 Albumin 3.3 L Triglycerides 254 H Cholesterol 342 H Total LDL Cholesterol 210 H HDL Cholesterol 82 H Lipase 443 H TSH 2.49 05/31/19 05/31/19 11:24 16:20 WBC RBC Hgb Hct MCV MCH MCHC RDW Plt Count MPV Absolute Neuts (auto) Neutrophils % Lymphocytes % Monocytes % Eosinophils % Basophils % Nucleated RBC % Sodium Potassium Chloride Carbon Dioxide Anion Gap BUN Creatinine Est GFR (CKD-EPI)AfAm Est GFR (CKD-EPI)NonAf POC Glucometer 248 296 Random Glucose Hemoglobin A1c % Calcium Phosphorus Magnesium Total Bilirubin AST ALT Alkaline Phosphatase Total Protein Albumin Triglycerides Cholesterol Total LDL Cholesterol HDL Cholesterol Lipase TSH Active Medications Generic Name Dose Route Start Last Admin Trade Name Freq PRN Reason Stop Dose Admin Acetaminophen 650 mg 05/30/19 16:33 05/31/19 09:50 Tylenol - PO 650 mg Q6H PRN Administration PAIN LEVEL 1 - 3 Albuterol Sulfate 2 puff 05/30/19 17:11 Ventolin Hfa Inhaler - IH Q12H PRN WHEEZING Amlodipine Besylate 10 mg 05/31/19 10:00 05/31/19 09:52 Norvasc - PO 10 mg DAILY YADY Administration Fluticasone Propionate 1 spray 05/30/19 22:00 05/31/19 09:53 Flonase - NS 1 spray BID YADY Administration Folic Acid 1 mg 05/31/19 10:00 05/31/19 09:52 Folic Acid - PO 1 mg DAILY YADY Administration Heparin Sodium (Porcine) 5,000 unit 05/30/19 22:00 05/31/19 14:33 Heparin - SQ 5,000 unit TID YADY Administration Hydrochlorothiazide 12.5 mg 05/31/19 17:00 05/31/19 17:12 Hctz - PO 12.5 mg DAILY YADY Administration Insulin Aspart 1 vial 05/30/19 16:30 05/31/19 16:32 Novolog Vial Sliding Scale - SQ 6 units ACHS YADY Administration Protocol Insulin Detemir 25 units 05/30/19 22:00 05/30/19 22:39 Levemir Vial SQ 25 units HS YADY Administration Losartan Potassium 25 mg 05/30/19 19:00 05/31/19 09:53 Cozaar - PO 25 mg DAILY YADY Administration Pantoprazole Sodium 40 mg 05/31/19 10:30 05/31/19 11:16 Protonix Iv IVPUSH 40 mg DAILY YADY Administration Rosuvastatin Calcium 10 mg 05/30/19 22:00 05/30/19 22:38 Crestor - PO 10 mg HS YADY Administration Thiamine HCl 100 mg 05/31/19 10:00 05/31/19 09:52 Vitamin B1 - PO 100 mg DAILY YADY Administration ASSESSMENT/PLAN: This is a 44 y/o gentleman with a PMHx of HTN, IDDM, polysubstance abuse, HCV ( treated succesfully with Jaelyn), alcoholic pancreatitis, DKA, ischemic stroke (2013) with minimal residual left sided aphasia, craniotomies for bacterial cranial abscess, cirrhosis, who presents from [facility] c/o epigastric pain X 1 week. #Acute on chronic pancreatitis - likely 2/2 alcohol abuse - Lipase elevated>1000, RPT 443 - epigastric pain RESOLVED - lipid panel showing cholesterol 342, TG-254, LDL-210, HDL-82. - NORMAL TSH - can advance diet to diabetic/fat free/2g sodium diet - d/c'd LR given tolerating PO's and BP still high. - lipase ordered for am to make sure its downtrending - pt not in withdrawal at this time, will f/u at [facility] once clinically stable - librium and diazepam given in ED no need to continue - 2mg morphine q6 prn for pain #Hypertensive urgency - 2/2 not taking oral meds - c/w losartan 25 (New Med) - per med rec today pt was initially on amlodipine 5 so it was increased to norvasc 10 while here ddue to patient stating he was on 10mg. - added HCTZ 12.5 Daily as pt continues to be hypertensive stopped fluids. #IDDM - ISS - BGM ACHS - Levemir 25 HS Elevated BOHbutyrate 2/2 starvation ketosis - not in DKA - no AG, HCO3 not less than 18, we dont have an abg but the Beta hydroxybutyrate is likely due to starvation ketosis from poor po intake and DM Asthma - controlled - c/w home meds - ventolin and flonase DVT ppx: Hep 5K TID Dispo: Likely will d/c pt in AM if pain resolves with regular diet and BP stable. Visit type - Emergency Visit Emergency Visit: Yes ED Registration Date: 05/30/19 Care time: The patient presented to the Emergency Department on the above date and was hospitalized for further evaluation of their emergent condition. - New Patient This patient is new to me today: No - Critical Care Critical Care patient: No - Discharge Referral Referred to [facility] Med [facility] No ATTENDING PHYSICIAN STATEMENT I saw and evaluated the patient. I reviewed the resident's note and discussed the case with the resident. I agree with the resident's findings and plan as documented. SUBJECTIVE: OBJECTIVE: ASSESSMENT AND PLAN:
[2019-05-31] MEDS: INSULIN (LEVEMIR) 100 UNITS/ML UNITS SQ SCH (21:16)
[2019-05-31] MEDS: ROSUVASTATIN CA 10 MG TABLET (FP) PO SCH (21:23)
[2019-05-31] MEDS ORDERED: INSULIN (NOVOLOG) ASPART 100 UNITS/ML 10ML VIAL SQ ONE (22:20)
[2019-06-01] MEDS ORDERED: INSULIN (NOVOLOG) ASPART 100 UNITS/ML 10ML VIAL SQ ONE ×2 (00:21→02:58)
[2019-06-01 02:15] LABS: BLOOD UREA NITROGEN 12.2 mg/dL (7-18); CALCIUM 9.2 mg/dL (8.5-10.1); CREATININE 0.8 mg/dL (0.55-1.3); POTASSIUM 3.1 mmol/L (3.5-5.1)
[2019-06-01] MEDS: KCL 10 MEQ IVPB 10 MEQ/100 ML INFUS.BAG IVPB SCH ×6 (04:17→13:08)
[2019-06-01] MEDS: ACETAMINOPHEN 325 MG TABLET (FP) PO PRN (04:19)
[2019-06-01] MEDS: HEPARIN NA (PORCINE) 5,000 UNITS/ML 1ML VIAL SQ SCH ×2 (05:09→13:08)
[2019-06-01] MEDS: INSULIN SLIDING SCALE (NOVOLOG) 1 VIAL SQ SCH ×3 (06:09→16:22)
[2019-06-01] MEDS ORDERED: POTASSIUM CHLORIDE TABS 20 MEQ TABLET.ER (FP) PO ONE (07:18)
[2019-06-01] MEDS: FLUTICASONE PROP 0.05% 16 GM NASAL SPRAY NS SCH (09:32)
[2019-06-01] MEDS: THIAMINE HCL 100 MG TABLET (FP) PO SCH (09:32)
[2019-06-01] MEDS: LOSARTAN POTASSIUM 25 MG TABLET PO SCH (09:32)
[2019-06-01] MEDS: HYDROCHLOROTHIAZIDE 12.5 MG CAPSULE (FP) PO SCH (09:32)
[2019-06-01] MEDS: amLODIPine BESYLATE 10 MG TABLET (FP) PO SCH (09:32)
[2019-06-01] MEDS: FOLIC ACID 1 MG TABLET (FP) PO SCH (09:33)
[2019-06-01] MEDS: PANTOPRAZOLE SODIUM 40 MG VIAL IVPUSH SCH (09:33)
[2019-06-01 10:00] LABS: ALBUMIN 3.4 g/dl (3.4-5.0); BILIRUBIN,TOTAL 0.5 mg/dL (0.2-1); CALCIUM 9.5 mg/dL (8.5-10.1); CREATININE 0.7 mg/dL (0.55-1.3); POTASSIUM 3.7 mmol/L (3.5-5.1); TOT PROT 7.3 g/dl (6.4-8.2)
[2019-06-01] MEDS ORDERED: INSULIN (NOVOLOG) ASPART 100 UNITS/ML 10ML VIAL ONE ×2 (11:58→16:21)
[2019-06-01 13:36] VITALS: BP 159/93; PULSE 107; TEMP 98.7
--- NOTE | 2019-06-01 16:25 | PN ---
Teaching Attending Note Name of Resident: Gordo Berger ATTENDING PHYSICIAN STATEMENT I saw and evaluated the patient. I reviewed the resident's note and discussed the case with the resident. I agree with the resident's findings and plan as documented. SUBJECTIVE: Feeling much better. Abdominal pain resolved. No nausea/vomiting. No fever/chills. OBJECTIVE: Afebrile, hemodynamically Stable. Last Vital Signs Temp Pulse Resp BP Pulse Ox 98.7 F 107 H 18 159/93 95 06/01/19 13:35 06/01/19 13:35 06/01/19 13:35 06/01/19 13:35 06/01/19 10:00 Heart - S1, S2, RRR Lungs - clear to auscultation Abdomen -Soft, non-tender. Bowel Sounds normal. Extremities - no edema, no calf tenderness. Skin - extensive tattoes. Laboratory Results - last 24 hr 05/31/19 05/31/19 05/31/19 18:45 21:15 22:13 Sodium Potassium 3.4 L Chloride Carbon Dioxide Anion Gap BUN Creatinine Est GFR (CKD-EPI)AfAm Est GFR (CKD-EPI)NonAf POC Glucometer 432 467 Random Glucose Calcium Total Bilirubin AST ALT Alkaline Phosphatase Total Protein Albumin 05/31/19 06/01/19 06/01/19 23:23 00:45 05:11 Sodium 135 L Potassium 3.1 L Chloride 100 Carbon Dioxide 26 Anion Gap 10 BUN 12.2 Creatinine 0.8 Est GFR (CKD-EPI)AfAm 127.70 Est GFR (CKD-EPI)NonAf 110.18 POC Glucometer 518 231 Random Glucose 401 H* Calcium 9.2 Total Bilirubin AST ALT Alkaline Phosphatase Total Protein Albumin 06/01/19 06/01/19 06/01/19 07:15 11:50 16:08 Sodium 139 Potassium 3.7 Chloride 102 Carbon Dioxide 28 Anion Gap 9 BUN 13.0 Creatinine 0.7 Est GFR (CKD-EPI)AfAm 134.91 Est GFR (CKD-EPI)NonAf 116.40 POC Glucometer 321 305 Random Glucose 236 H Calcium 9.5 Total Bilirubin 0.5 AST 12 L ALT 28 Alkaline Phosphatase 132 H Total Protein 7.3 Albumin 3.4 Current Medications Generic Name Dose Route Start Last Admin Trade Name Freq PRN Reason Stop Dose Admin Acetaminophen 650 mg 05/30/19 16:33 06/01/19 04:19 Tylenol - PO 650 mg Q6H PRN Administration PAIN LEVEL 1 - 3 Albuterol Sulfate 2 puff 05/30/19 17:11 Ventolin Hfa Inhaler - IH Q12H PRN WHEEZING Amlodipine Besylate 10 mg 05/31/19 10:00 06/01/19 09:32 Norvasc - PO 10 mg DAILY YADY Administration Fluticasone Propionate 1 spray 05/30/19 22:00 06/01/19 09:32 Flonase - NS 1 spray BID YADY Administration Folic Acid 1 mg 05/31/19 10:00 06/01/19 09:33 Folic Acid - PO 1 mg DAILY YADY Administration Heparin Sodium (Porcine) 5,000 unit 05/30/19 22:00 06/01/19 13:08 Heparin - SQ 5,000 unit TID YADY Administration Hydrochlorothiazide 12.5 mg 05/31/19 17:00 06/01/19 09:32 Hctz - PO 12.5 mg DAILY YADY Administration Insulin Aspart 1 vial 05/30/19 16:30 06/01/19 16:22 Novolog Vial Sliding Scale - SQ 8 units ACHS [facility] Administration Protocol Insulin Detemir 30 units 06/01/19 22:00 Levemir Vial SQ HS [facility] Losartan Potassium 25 mg 05/30/19 19:00 06/01/19 09:32 Cozaar - PO 25 mg DAILY YADY Administration Pantoprazole Sodium 40 mg 05/31/19 10:30 06/01/19 09:33 Protonix Iv IVPUSH 40 mg DAILY [facility] Administration Rosuvastatin Calcium 10 mg 05/30/19 22:00 05/31/19 21:23 Crestor - PO 10 mg HS [facility] Administration Thiamine HCl 100 mg 05/31/19 10:00 06/01/19 09:32 Vitamin B1 - PO 100 mg DAILY [facility] Administration Home Medications Medication Instructions Recorded Insulin Aspart [Novolog] 10 unit SQ AC 05/30/19 Rosuvastatin Calcium [Crestor] 20 mg PO HS 05/30/19 Amlodipine Besylate [Norvasc -] 10 mg PO DAILY #30 tablet 06/01/19 Folic Acid - 1 mg PO DAILY #30 tablet 06/01/19 Hydrochlorothiazide [Hctz -] 12.5 mg PO DAILY #30 cap 06/01/19 Insulin Glargine,Hum.rec.anlog 30 unit SQ HS #4 vial 06/01/19 [Lantus] Losartan Potassium [Cozaar -] 25 mg PO DAILY #30 tablet 06/01/19 Pantoprazole Sodium [Protonix] 40 mg PO DAILY #30 tablet. 06/01/19 Thiamine HCl [Vitamin B1 -] 100 mg PO DAILY #30 tablet 06/01/19 ASSESSMENT AND PLAN: 44 year old male with history of Asthma, Polysubstance Abuse (cocaine, heroin, alcohol), DM 2, HCV (s/p Harvoni treatment), Hx Pancreatitis, CVA (2013), s/p craniotomies for cranial abscesses, presents from [facility] with 1 week history of epigastric pain and uncontrolled HTN. 1. Acute on Chronic Pancreatitis Likely sec to alcohol excess Improving, reports resolution in pain. Tolerating regular diet - medically stable for discharge. PPI daily. 2. Uncontrolled Hypertension Norvasc dose increased to 10mg, HCTZ and Losartan added. For electrolyte/renal function monitoring in 1-2 weeks. BP check with PCP on 06/05/19 3. IDDM - uncontrolled, A1C 9.2 Continue Glargine and Novlog before meals. Glargine dose increased due to uncontrolled BG and elevated A1c. 4. Asthma - stable, no evidence of acute exacerbation. Albuterol PRN. 5. HLD - LDL 254/LDL 210. Patient admits to non-compliance. Importance of medication compliance stressed. Continue Crestor. 6. Polysubstance Abuse (cocaine, heroin, alcohol) - no evidence of withdrawal. Continue Thiamine, Folic Acid. Medically Stable for discharge with BP follow up and chemistry monitoring as out -patient.
--- NOTE | 2019-06-01 17:13 | DS ---
Physical Exam: SUBJECTIVE: Patient seen and examined. Feeling better, no further abdominal pain. OBJECTIVE: Vital Signs Period Temp Pulse Resp BP Sys/Monte Pulse Ox Last 24 Hr 97.1 F-98.7 F 100-109 18-20 156-162/93-117 95 PHYSICAL EXAM GENERAL: The patient is awake, alert, and fully oriented, in no acute distress. Neck: supple. LUNGS: Breath sounds equal, clear to auscultation bilaterally, no wheezes, no crackles, no accessory muscle use. HEART: Regular rate and rhythm, S1, S2 without murmur, rub or gallop. ABDOMEN: Soft, nontender, nondistended, no guarding, no rebound. EXTREMITIES: 2+ pulses, warm, well-perfused, no edema. NEUROLOGICAL: Normal speech, gait not observed. PSYCH: Normal mood, normal affect. SKIN: tattoes throughout body LABS Laboratory Results - last 24 hr 05/31/19 05/31/19 05/31/19 18:45 21:15 22:13 Sodium Potassium 3.4 L Chloride Carbon Dioxide Anion Gap BUN Creatinine Est GFR (CKD-EPI)AfAm Est GFR (CKD-EPI)NonAf POC Glucometer 432 467 Random Glucose Calcium Total Bilirubin AST ALT Alkaline Phosphatase Total Protein Albumin 05/31/19 06/01/19 06/01/19 23:23 00:45 05:11 Sodium 135 L Potassium 3.1 L Chloride 100 Carbon Dioxide 26 Anion Gap 10 BUN 12.2 Creatinine 0.8 Est GFR (CKD-EPI)AfAm 127.70 Est GFR (CKD-EPI)NonAf 110.18 POC Glucometer 518 231 Random Glucose 401 H* Calcium 9.2 Total Bilirubin AST ALT Alkaline Phosphatase Total Protein Albumin 06/01/19 06/01/19 06/01/19 07:15 11:50 16:08 Sodium 139 Potassium 3.7 Chloride 102 Carbon Dioxide 28 Anion Gap 9 BUN 13.0 Creatinine 0.7 Est GFR (CKD-EPI)AfAm 134.91 Est GFR (CKD-EPI)NonAf 116.40 POC Glucometer 321 305 Random Glucose 236 H Calcium 9.5 Total Bilirubin 0.5 AST 12 L ALT 28 Alkaline Phosphatase 132 H Total Protein 7.3 Albumin 3.4 HOSPITAL COURSE: Date of Admission:05/30/19 This gentleman w/ PMHx of craniotomies, HCV cirrhosis (Rx w Jaelyn), IDDM, polysubstance abuse (heroin, cocaine 5 yrs ago) was admitted for acute on chronic pancreatitis 2/2 alcohol abuse, along with hyperglycemia, and hypertensive urgency. Pt presented from [facility] (not in alcohol withdrawal) after having epigastric pain traveling to his [place] and was subsequently not accepted at [facility]. He was given LR fluids, advanced diet as tolerated, repleted K that was found to be low while here. For his HTN we increased his norvasc to 10mg, started him on losartan 25, and HCTZ 12.5 daily. I scheduled him an appt at the clinic to have a follow up BMP after being on MARY KATE inhibitor and to follow up his lipids given his cholesterol was high on crestor. He may need to have a dose adjustment as o/p. He was counseled on alcohol cessation. Sent home on thiamine and folic acid as well. For his uncontrolled DM, I increased his lantus from 25 -> 30 HS. He was told to continue all other home meds as prescribed and to return to the ER if he had any worsening of his current symptoms or chest pain, sob, abd pain, weakness etc. Date of Discharge: 06/01/19 Minutes to complete discharge: 35 Discharge Summary Problems reviewed: Yes Reason For Visit: UNCONTROLLED DIABETES MELLITUS Current Active Problems Hypertension (Chronic) Condition: Good - Instructions Diet, Activity, Other Instructions: You were admitted for inflammation of your pancreas. You were given fluids here to help treat the inflammation. Your inflammation has now resolved. I recommend you stop drinking alcohol as this is likely what has caused your episode. You should repeat a blood test (bmp) in on friday 06/09 at 10:30 AM at the [facility] clinic with Dr. Gordo Berger. You should also have a repeat blood test (lipid panel) to check your cholesterol, given it was elevated while here. You should avoid fatty foods in your diet. Meds we adjusted or increased while here: Losartan 25 mg by mouth once a day for your high blood pressure and to prevent kidney damage. Hydrochlorothiazide 12.5 mg by mouth once a day for your high blood pressure. Amlodipine increased from 5mg by mouth once daily to 10mg by mouth once daily for your high blood pressure. Increase your Lantus from 25mg to 30mg before bed time once a day for better sugar control for your diabetes. Folic acid 1 tablet once daily by mouth for vitamin supplement given your alcohol history. Thiamine 100 mg by mouth once daily for vitamin supplement given your alcohol history. Please take Protonix 40 mg by mouth once daily. Medication we discontinued: Please STOP taking Famotidine. You should continue all other meds as prescribed. Recommendations IT IS IMPORTANT THAT YOU TAKE YOUR MEDICATIONS PRESCRIBED. You should return to the emergency room if you have any worsening of your current symptoms or: chest pain, shortness of breath, abdominal pain, bowel/ bladder complaints. Referrals: [facility] [place] [facility] [place] [facility] [place] [Provider Group] - 1 Week Gordo Berger RES [Resident] - 1 Week Disposition: HOME - Home Medications Comprehensive Discharge Medication List: Ambulatory Orders Insulin Aspart [Novolog] 10 unit SQ AC 05/30/19 Rosuvastatin Calcium [Crestor] 20 mg PO HS 05/30/19 Amlodipine Besylate [Norvasc -] 10 mg PO DAILY #30 tablet 06/01/19 Folic Acid - 1 mg PO DAILY #30 tablet 06/01/19 Hydrochlorothiazide [Hctz -] 12.5 mg PO DAILY #30 cap 06/01/19 Insulin Glargine,Hum.rec.anlog [Lantus] 30 unit SQ HS #4 vial 06/01/19 Losartan Potassium [Cozaar -] 25 mg PO DAILY #30 tablet 06/01/19 Pantoprazole Sodium [Protonix] 40 mg PO DAILY #30 tablet. 06/01/19 Thiamine HCl [Vitamin B1 -] 100 mg PO DAILY #30 tablet 06/01/19 This patient is new to me today: No Emergency Visit: Yes ED Registration Date: 05/30/19 Care time: The patient presented to the Emergency Department on the above date and was hospitalized for further evaluation of their emergent condition. Critical Care patient: No - Discharge Referral Referred to [facility] No ATTENDING PHYSICIAN STATEMENT I saw and evaluated the patient. I reviewed the resident's note and discussed the case with the resident. I agree with the resident's findings and plan as documented. SUBJECTIVE: OBJECTIVE: ASSESSMENT AND PLAN:
[2019-06-01] MEDS ORDERED: INSULIN (LEVEMIR) 100 UNITS/ML UNITS SQ SCH (22:00)
== END 2019-06-01 18:30 | disposition home or self-care (01) | DRG 440 ==
LOC: JER 12:42 → JERBED 14:44 → J6S 21:56
PROC: HZ2ZZZZ Detoxification Services for Substance Abuse Treatment (ICD-10-PCS; principal; 2019-05-30)
DX: K85.20 Alcohol induced acute pancreatitis without necrosis or infection (principal); K86.0 Alcohol-induced chronic pancreatitis; I69.320 Aphasia following cerebral infarction; I16.0 Hypertensive urgency; E11.65 Type 2 diabetes mellitus with hyperglycemia; J45.909 Unspecified asthma, uncomplicated; E78.5 Hyperlipidemia, unspecified; F10.10 Alcohol abuse, uncomplicated; F14.10 Cocaine abuse, uncomplicated; F11.10 Opioid abuse, uncomplicated; E66.9 Obesity, unspecified; Z68.35 Body mass index [BMI] 35.0-35.9, adult; R00.0 Tachycardia, unspecified
CPT/HCPCS: 36415; 71045-TC-FY; 80048; 80053; 80061; 81003; 82010; 82803; 82962; 83036; 83690; 83721; 83735; 84100; 84132; 84443; 84484; 85025; 93005; 93010; 99285-25; J0131; J1644; J7030